=== PATIENT | male | born 1965 | race Caucasian/White ===

== ENCOUNTER → 2017-06-06 | Outpatient (CLI) | payer OTHER ==
[~2017-06-06] MED LIST: CIALIS20 MG PO; FLONASE 0.05%50 MCG NASAL; KEFLEX500 M1 PO; MOBIC15 MG PO; WELLBUTRIN XL300 MG PO
[2017-06-06 07:52] LABS: HEMATOCRIT 39.7 % (42.0-52.0); HEMOGLOBIN 13.5 gm/dL (14.0-18.0); MCH 30.6 pg (26.0-34.0); MCV 90.1 fL (80.0-100.0); MPV 7.8 fl. (7.2-11.1); RBC 4.41 mil/uL (4.50-6.00); RDW-CV 13.1 % (10.5-14.5); WBC 6.4 thou/uL (4.0-11.0)
[2017-06-06 08:12] LABS: ALBUMIN 3.9 g/dL (3.4-5.0); CALCIUM 8.7 mg/dL (8.5-10.1); POTASSIUM 3.6 mmol/L (3.5-5.1); TOTAL BILIRUBIN 0.6 mg/dL (<0.1-1.0); TOTAL PROTEIN 6.8 g/dL (6.4-8.2)
== END ==
LOC: M.LAB 07:30
PROVIDERS: Anesthesiology
DX: Z01.812 Encounter for preprocedural laboratory examination (principal)

== ENCOUNTER 2017-08-24 17:14 | Emergency (ER) | payer OTHER ==
[~2017-08-24] VITALS: Ht 177.8 cm; Wt 61.2 kg
[2017-08-24] MEDS ORDERED: FLONASE 0.05%50 MCG NASAL (17:28)
[2017-08-24] MEDS ORDERED: WELLBUTRIN XL300 MG PO (17:28)
[2017-08-24] MEDS ORDERED: MOBIC15 MG PO (17:28)
[2017-08-24] MEDS ORDERED: CIALIS20 MG PO (17:29)
[2017-08-24] MEDS ORDERED: KEFLEX500 M1 PO (18:07)
[2017-08-24 18:18] VITALS: BP 176/99
== END 2017-08-24 18:19 | disposition home or self-care (01) ==
LOC: M.ERS 17:14
DX: S61.211A Laceration without foreign body of left index finger without damage to nail, initial encounter (principal); W26.0XXA Contact with knife, initial encounter; Y93.89 Activity, other specified; Y92.89 Other specified places as the place of occurrence of the external cause; Y99.8 Other external cause status; I10 Essential (primary) hypertension; F32.9 Major depressive disorder, single episode, unspecified; Z96.641 Presence of right artificial hip joint